=== PATIENT | male | born 1990 | race Caucasian/White ===

== ENCOUNTER 2019-03-06 04:19 | Emergency (ER) | payer MEDICAID ==
[~2019-03-06] VITALS: Ht 165.1 cm; Wt 68.0 kg
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
[2019-03-06] MEDS ORDERED: LIDOCAINE 1%-EPI 1:100,000 20 ML VIAL ONE (04:59)
[2019-03-06] MEDS ORDERED: LIDOCAINE 1%-EPI 1:100,000 50 ML VIAL IJ ONE (05:00)
[2019-03-06] MEDS ORDERED: TDAP [DIPH/PERTUSSIS/TET] 0.5 ML VIAL IM ONE ×2 (05:00→06:17)
--- NOTE | 2019-03-06 05:50 | NUR ---
AT BEDSIDE FOR SUTURE.
[2019-03-06] MEDS ORDERED: CEPHALEXIN MONOHYDRATE 500 MG CAPSULE PO ONE ×2 (05:57→06:00)
--- NOTE | 2019-03-06 06:10 | NUR ---
EMT AT BEDSIDE FOR WOUND DRESSING.
--- NOTE | 2019-03-06 06:51 | NUR ---
Patient discharged to home in stable condition. Written and verbal after care instructions given. Patient verbalizes understanding of instruction. Pt ambulatory with a steady gait
[2019-03-06 06:52] VITALS: BP 130/83
== END 2019-03-06 06:52 | disposition home or self-care (01) ==
LOC: ER 04:23
DX: S61.422A Laceration with foreign body of left hand, initial encounter (principal); S64.492A Injury of digital nerve of right middle finger, initial encounter; S64.490A Injury of digital nerve of right index finger, initial encounter; W25.XXXA Contact with sharp glass, initial encounter; Y93.89 Activity, other specified; Y92.89 Other specified places as the place of occurrence of the external cause; Y99.8 Other external cause status
CPT/HCPCS: 12042; 73130; 90471; 90715; 99284; A6403; J3490 ×2

== ENCOUNTER 2019-03-17 10:19 | Emergency (ER) | payer MEDICAID ==
[~2019-03-17] VITALS: Ht 167.6 cm; Wt 68.0 kg
[2019-03-17 10:25] VITALS: BP 134/76
--- NOTE | 2019-03-17 11:16 | NUR ---
Patient discharged to home in stable condition. Written and verbal after care instructions given. Patient verbalizes understanding of instruction.
== END 2019-03-17 11:16 | disposition home or self-care (01) ==
LOC: ER 10:20
DX: S61.412D Laceration without foreign body of left hand, subsequent encounter (principal); X58.XXXD Exposure to other specified factors, subsequent encounter

== ENCOUNTER 2020-07-24 18:23 | Emergency (ER) | payer MEDICAID ==
--- NOTE | 2020-07-24 19:10 | NUR ---
CALLED FOR TRIAGE, NO ANSWER.
--- NOTE | 2020-07-24 19:19 | NUR ---
CALLED FOR TRIAGE, NO ANSWER.
--- NOTE | 2020-07-24 19:37 | NUR ---
CALLED FOR TRIAGE, NOT IN WAITING ROOM
--- NOTE | 2020-07-24 20:02 | NUR ---
LAST CALL TO TRIAGE. NO ANSWER
== END 2020-07-24 21:02 | disposition left against medical advice (07) ==
LOC: ER 18:24
DX: Z02.89 Encounter for other administrative examinations (principal); Z53.21 Procedure and treatment not carried out due to patient leaving prior to being seen by health care provider

== ENCOUNTER 2020-07-27 10:22 | Emergency (ER) | payer MEDICAID ==
[~2020-07-27] VITALS: Ht 165.1 cm; Wt 61.7 kg
[2020-07-27] MEDS ORDERED: LORAZEPAM 1 MG TABLET PO ONE (13:00)
[2020-07-27] MEDS ORDERED: LORA-259 PO (13:43)
--- NOTE | 2020-07-27 14:12 | NUR ---
PATIENT A/OX4, BREATHING EVEN AND UNLABORED, NO SOB NOTED, NEEDS ATTENDED. DENIES FEELING ANXIOUS. PATIENT SEEN AND EVALUATED BY BUY BOAT OPERATOR. RESOURCES PROVIDED. Patient given written and verbal discharge instructions. Patient verbalizes understanding of instructions. Patient is ambulatory with steady gait. Refuses offer of alf placement. Patient given list of available shelters in surrounding area.
[2020-07-27 14:13] VITALS: BP 122/81
--- NOTE | 2020-07-27 14:50 | NUR ---
"Bottom Steep Tender consult: medical staff services coordinator consult requested for homelessness. Patient is a 30-year-old, male. SW met with patient in the emergency department. Patient was alert and oriented x4. Patient presented calm and appears well-groomed. Per chart, patient presented with complaints of anxiety on 07/27/20. Patient stated that he is currently homeless. Patient stated that he is currently receiving food stamps and General Relief. Patient stated that he receives some support from his mother and aunt such as providing some food, money or shower. SW asked patient if he has a history of substance use and patient reported occasional alcohol use. Patient stated his last use was four days ago. Patient denied drug use. Patient denied history of mental illness. Patient denied suicidal and homicidal ideation. SW offered patient homeless resources. Patient accepted the resources and thanked SW. Patient signed homeless waiver and SW filed waiver in the patient's chart. Patient stated that he will return to his prior living arrangement on the street and will take public transportation. PLAN: Patient will return to his prior living arrangement. No further SS intervention, however, SW will remain available as needed. RESOURCES: Year-round shelters: [facility] [address] [place] [address] ; [facility] [address] [place] [address]; [facility] [id number] [facility] [address] SPA 4 | [facility] Provider: [facility] Address: [address], [address] # of Beds: 48 Population Served: [facility] Provider: First [facility] Serve Address: [address] [facility], [address] # of Beds: 73 Population Served: [facility] 6 | [facility] Provider: [facility] Last Address: [address] [facility], [address] # of Beds: 63 Population Served: [facility] 3 | [facility] Provider: Rohit of [place] Address: [address] [place] [address] # of Beds: 75 Population Served: [facility] SPA 8 | [facility] Provider: Christian YI Address: [address] [facility], [address] # of Beds: 80 Population Served: [facility] SPA 1 | [facility] Provider: Christian YI Address: [address] [place] [address], [address] # of Beds: 85 Population Served: [facility] SPA 2 | [facility] Provider: Mari saavedra [facility] Address: Confidential (please call for location) # of Beds: 52 Population Served: [facility] SPA 4 | [facility] Provider: [facility] Address: [address] [facility], [address] # of Beds: 49 Population Served: [facility] Provider: [facility] Address: [address] [place] [address] # of Beds: 27 Population Served: [facility] Hygiene: [facility]: [address] [facility] ; [facility] [address] [facility] ; [facility] [address] [facility] . Food Resources: [place] [facility] at [facility]- [address] [facility]; Meet Each Need with [facility] ([facility]) [address] [facility]; [facility] [address] [facility]; [facility] [address] [facility]. Mental Health resources provided: [facility] [address] [place] [address] ; [facility] [address] [facility] [address], [place] [address] ; [facility] [address] [place] [address] ; [facility] [address] [place], [place] [id number] Healthcare Clinics: [facility] [address] [facility], [address] [place] ; [facility] [address] [facility] [address] [place] [address]; [facility] [address] [facility] [place] [phone] Counseling--Outpatient [facility] [address] [facility], [address] [place], [place] [address] (Specializes in in-depth psychotherapy for emotional distress: anxiety, depression, interpersonal conflicts, life transitions, childhood abuse) PSYCHIATRIC OUTPATIENT SERVICES [facility] Partial Hospitalization and Intensive Outpatient Program (Managed Care and [place] Only) [address] [facility] [address] [facility] Partial Hospitalization and Outpatient Program [address] [place], [place] [id number] [facility] Partial Hospitalization and Outpatient Program [address] [facility]. [place], [place] [phone] JAMAL PACHECO [facility] [address] [facility] [place], [place] [address] [facility] Partial Hospitalization and Outpatient Program [address] [place], [place] [phone] "
== END 2020-07-27 14:14 | disposition home or self-care (01) ==
LOC: ER 11:05
DX: F41.9 Anxiety disorder, unspecified (principal); Z59.0 Homelessness

== ENCOUNTER 2020-08-30 20:13 | Emergency (ER) | payer MEDICAID ==
[~2020-08-30] VITALS: Ht 167.6 cm; Wt 65.8 kg
[~2020-08-30 20:13] MED LIST: LORA-259 PO
[2020-08-30 20:30] VITALS: BP 134/81
[2020-08-30] MEDS ORDERED: ACET-2605 PO (21:05)
[2020-08-30] MEDS ORDERED: ACETAMINOPHEN ES 500 MG TABLET ONE (21:47)
[2020-08-30] MEDS: ACETAMINOPHEN ES 500 MG TABLET PO ONE (22:01)
--- NOTE | 2020-08-30 22:01 | NUR ---
PT LEFT BEFORE DISCHARGE.
== END 2020-08-30 22:02 | disposition home or self-care (01) ==
LOC: ER 20:15
DX: Z20.828 Contact with and (suspected) exposure to other viral communicable diseases (principal); R05 Cough; R09.81 Nasal congestion; F41.9 Anxiety disorder, unspecified; Z59.0 Homelessness; Z79.899 Other long term (current) drug therapy

== ENCOUNTER 2020-10-18 19:02 | Emergency (ER) | payer MEDICAID ==
[~2020-10-18] VITALS: Ht 167.6 cm; Wt 72.6 kg
[~2020-10-18 19:02] MED LIST changes: +ACET-2605 PO
--- NOTE | 2020-10-18 19:45 | NUR ---
CALLED FOR TRIAGE NOT IN WAITING ROOM.
--- NOTE | 2020-10-18 20:04 | NUR ---
CALLED FOR TRIAGE NOT IN WAITING ROOM
[2020-10-18] MEDS ORDERED: IV NS 0.9% 1,000 ML BAG IV ONE (20:30)
[2020-10-18] MEDS ORDERED: ONDANSETRON HCL/PF 4 MG/2 ML VIAL IVP ONE (20:30)
[2020-10-18] MEDS ORDERED: ONDANSETRON HCL/PF 4 MG/2 ML VIAL ONE (20:44)
[2020-10-18 20:45] LABS: BASOPHILS % (AUTO) 0.3 % (0.0-2.0); EOSINOPHILS % (AUTO) 0.1 % (0.0-6.0); HEMATOCRIT 48 % (39-51); HEMOGLOBIN 16.2 g/dL (13.5-17.5); LYMPHOCYTES # (AUTO) 1.2 K/uL (0.8-4.8); LYMPHOCYTES % (AUTO) 9.1 % (20.0-44.0); MEAN CORPUSCULAR HGB CONC 34 g/dl (31.0-36.0); MEAN CORPUSCULAR VOLUME 92 fL (80-96); MONOCYTES # (AUTO) 0.5 K/uL (0.1-1.30); MONOCYTES % (AUTO) 3.9 % (2.0-12.0); NEUTROPHILS # (AUTO) 11.7 K/uL (1.8-8.9); NEUTROPHILS % (AUTO) 86.6 % (43.0-81.0); PLATELET COUNT (AUTO) 280 K/uL (150-450); WHITE BLOOD COUNT (AUTO) 13.5 K/uL (4.3-11.0)
[2020-10-18 20:56] LABS: CALCIUM, SERUM 9.1 mg/dL (8.5-10.1); CREATININE 1.1 mg/dL (0.6-1.3); POTASSIUM 4.1 mmol/L (3.5-5.1)
[2020-10-18 21:02] LABS: ALBUMIN 4.7 g/dL (3.4-5.0); BILIRUBIN,DIRECT 0.2 mg/dL (0.0-0.2); BILIRUBIN,TOTAL 0.6 mg/dL (0.2-1.0); TOTAL PROTEIN, SERUM 8.5 g/dL (6.4-8.2)
[2020-10-18] MEDS ORDERED: ONDA4TAB5 PO (21:31)
--- NOTE | 2020-10-18 21:38 | NUR ---
Patient discharged to home in stable condition. Written and verbal after care instructions given. Patient verbalizes understanding of instruction. Pt ambulatory with a steady gait IV removed. Catheter intact and site benign. Pressure and 4x4 applied to site. No bleeding noted.
[2020-10-18 22:22] VITALS: BP 131/82
== END 2020-10-18 22:23 | disposition home or self-care (01) ==
LOC: ER 19:06
DX: R11.2 Nausea with vomiting, unspecified (principal); F41.9 Anxiety disorder, unspecified; Z59.0 Homelessness; Z79.899 Other long term (current) drug therapy
CPT/HCPCS: 36415; 80048; 80076; 83690; 85025; 96361; 96374; 99283; J2405; J7030

== ENCOUNTER 2020-11-26 13:27 | Emergency (ER) | payer MEDICAID ==
[~2020-11-26] VITALS: Ht 167.6 cm; Wt 72.6 kg
[~2020-11-26 13:27] MED LIST changes: +ONDA4TAB5 PO
--- NOTE | 2020-11-26 13:40 | NUR ---
Patient came in to the er c/o Chest pain; pressure like 5/10; x 4 days; intermittent. on room air, unlabored. Connected to the monitor and pulse ox. kept comfortable, will continue to monitor accordingly.
[2020-11-26 14:39] LABS: BASOPHILS % (AUTO) 0.5 % (0.0-2.0); EOSINOPHILS % (AUTO) 1.4 % (0.0-6.0); HEMATOCRIT 44 % (39-51); HEMOGLOBIN 14.9 g/dL (13.5-17.5); LYMPHOCYTES # (AUTO) 1.3 K/uL (0.8-4.8); LYMPHOCYTES % (AUTO) 18.8 % (20.0-44.0); MEAN CORPUSCULAR HGB CONC 34 g/dl (31.0-36.0); MEAN CORPUSCULAR VOLUME 93 fL (80-96); MONOCYTES # (AUTO) 0.5 K/uL (0.1-1.30); MONOCYTES % (AUTO) 6.9 % (2.0-12.0); NEUTROPHILS % (AUTO) 72.4 % (43.0-81.0); PLATELET COUNT (AUTO) 252 K/uL (150-450); RED BLOOD CELL COUNT(AUTO) 4.78 MIL/uL (4.5-6.0); WHITE BLOOD COUNT (AUTO) 6.9 K/uL (4.3-11.0)
[2020-11-26 14:53] LABS: CARBON DIOXIDE 29 mmol/L (21-32); CHLORIDE 103 mmol/L (98-107); GLUCOSE 93 mg/dL (74-106); POTASSIUM 3.9 mmol/L (3.5-5.1); SODIUM SERUM 141 mmol/L (136-145); UREA NITROGEN, BLOOD 13 mg/dL (7-18)
[2020-11-26] MEDS ORDERED: LORA-259 PO (16:01)
[2020-11-26 16:11] VITALS: BP 118/71
--- NOTE | 2020-11-26 16:12 | NUR ---
Patient discharged to home in stable condition. Written and verbal after care instructions given. Patient verbalizes understanding of instruction.
== END 2020-11-26 16:12 | disposition home or self-care (01) ==
LOC: ER 13:29
DX: R07.89 Other chest pain (principal); F41.9 Anxiety disorder, unspecified; Z79.899 Other long term (current) drug therapy
CPT/HCPCS: 36415; 71045-TC; 80048-TC; 84484-TC; 85025-TC

== ENCOUNTER 2021-03-12 02:36 | Emergency (ER) | payer MEDICAID ==
[~2021-03-12] VITALS: Ht 165.1 cm; Wt 63.5 kg
[2021-03-12] MEDS ORDERED: MORPHINE SULFATE INJ 2 MG/ML DISP.SYRIN IV ONE (03:00)
[2021-03-12] MEDS ORDERED: IV NS 0.9% 1,000 ML BAG IV ONE (03:00)
[2021-03-12] MEDS ORDERED: ONDANSETRON HCL/PF 4 MG/2 ML VIAL IVP ONE (03:00)
[2021-03-12] MEDS ORDERED: MORPHINE SULFATE INJ 4 MG/ML DISP.SYRIN ONE (03:10)
[2021-03-12] MEDS ORDERED: ONDANSETRON HCL/PF 4 MG/2 ML VIAL ONE (03:10)
[2021-03-12 03:29] LABS: BASOPHILS # (AUTO) 0.1 K/uL (0.0-0.2); BASOPHILS % (AUTO) 0.4 % (0.0-2.0); EOSINOPHILS % (AUTO) 1.9 % (0.0-6.0); HEMATOCRIT 45 % (39-51); HEMOGLOBIN 15.4 g/dL (13.5-17.5); LYMPHOCYTES # (AUTO) 2.2 K/uL (0.8-4.8); LYMPHOCYTES % (AUTO) 17.3 % (20.0-44.0); MEAN CORPUSCULAR HGB CONC 34 g/dl (31.0-36.0); MEAN CORPUSCULAR VOLUME 90 fL (80-96); MONOCYTES # (AUTO) 0.6 K/uL (0.1-1.30); MONOCYTES % (AUTO) 4.9 % (2.0-12.0); NEUTROPHILS # (AUTO) 9.7 K/uL (1.8-8.9); NEUTROPHILS % (AUTO) 75.5 % (43.0-81.0); PLATELET COUNT (AUTO) 230 K/uL (150-450); RED BLOOD CELL COUNT(AUTO) 4.99 MIL/uL (4.5-6.0); WHITE BLOOD COUNT (AUTO) 12.9 K/uL (4.3-11.0)
[2021-03-12 03:41] LABS: CALCIUM, SERUM 9.4 mg/dL (8.5-10.1); CREATININE 1.2 mg/dL (0.6-1.3); POTASSIUM 3.4 mmol/L (3.5-5.1)
[2021-03-12 03:49] LABS: ALBUMIN 4.5 g/dL (3.4-5.0); BILIRUBIN,DIRECT 0.2 mg/dL (0.0-0.2); BILIRUBIN,TOTAL 0.6 mg/dL (0.2-1.0); TOTAL PROTEIN, SERUM 8.1 g/dL (6.4-8.2)
[2021-03-12] MEDS ORDERED: ONDA4TAB5 PO (05:00)
[2021-03-12 06:11] VITALS: BP 119/81
== END 2021-03-12 06:12 | disposition home or self-care (01) ==
LOC: ER 02:37
DX: R11.2 Nausea with vomiting, unspecified (principal); Z20.822 Contact with and (suspected) exposure to COVID-19; Z90.49 Acquired absence of other specified parts of digestive tract; K57.90 Diverticulosis of intestine, part unspecified, without perforation or abscess without bleeding; D72.829 Elevated white blood cell count, unspecified; F41.9 Anxiety disorder, unspecified; Z79.899 Other long term (current) drug therapy
CPT/HCPCS: 36415; 74176; 80048; 80076; 80307; 85025; 87426; 96361; 96374; 99284; C9803; J2405; J7030; J2270

== ENCOUNTER 2021-09-14 14:11 | Emergency (ER) | payer MEDICAID ==
[~2021-09-14] VITALS: Ht 167.6 cm; Wt 68.0 kg
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
[2021-09-14] MEDS ORDERED: LIDOCAINE 1%-EPI 1:100,000 20 ML VIAL TP ONE (16:00)
[2021-09-14] MEDS ORDERED: CEPH500C2 PO (16:41)
[2021-09-14 16:54] VITALS: BP 124/81
== END 2021-09-14 16:55 | disposition home or self-care (01) ==
LOC: ER 14:13
DX: S31.119A Laceration without foreign body of abdominal wall, unspecified quadrant without penetration into peritoneal cavity, initial encounter (principal); S60.031A Contusion of right middle finger without damage to nail, initial encounter; S60.041A Contusion of right ring finger without damage to nail, initial encounter; F41.9 Anxiety disorder, unspecified; Z79.899 Other long term (current) drug therapy; X99.1XXA Assault by knife, initial encounter; Y93.01 Activity, walking, marching and hiking; Y92.89 Other specified places as the place of occurrence of the external cause; Y99.8 Other external cause status
CPT/HCPCS: 73130-TC

== ENCOUNTER 2021-09-19 16:05 | Emergency (ER) | payer MEDICAID ==
[~2021-09-19] VITALS: Ht 167.6 cm; Wt 68.0 kg
[~2021-09-19 16:05] MED LIST changes: +CEPH500C2 PO
[2021-09-19 16:33] VITALS: BP 130/61
--- NOTE | 2021-09-19 17:10 | NUR ---
Patient discharged to home in stable condition. Written and verbal after care instructions given. Patient verbalizes understanding of instruction.
== END 2021-09-19 17:10 | disposition home or self-care (01) ==
LOC: ER 16:07
DX: S31.119D Laceration without foreign body of abdominal wall, unspecified quadrant without penetration into peritoneal cavity, subsequent encounter (principal); Z59.00 Homelessness unspecified; F41.9 Anxiety disorder, unspecified; Z79.899 Other long term (current) drug therapy; X58.XXXD Exposure to other specified factors, subsequent encounter

== ENCOUNTER 2021-09-28 17:10 | Emergency (ER) | payer MEDICAID ==
[~2021-09-28] VITALS: Ht 167.6 cm; Wt 65.8 kg
[2021-09-28 17:18] VITALS: BP 115/72
== END 2021-09-28 17:34 | disposition home or self-care (01) ==
LOC: ER 17:12
DX: S31.119D Laceration without foreign body of abdominal wall, unspecified quadrant without penetration into peritoneal cavity, subsequent encounter (principal); F41.9 Anxiety disorder, unspecified; Z79.899 Other long term (current) drug therapy; X58.XXXD Exposure to other specified factors, subsequent encounter

== ENCOUNTER 2021-10-16 03:06 | Emergency (ER) | payer MEDICAID ==
[~2021-10-16] VITALS: Ht 167.6 cm; Wt 88.5 kg
[2021-10-16 03:22] VITALS: BP 102/75
--- NOTE | 2021-10-16 03:22 | NUR ---
BIBS FROM HOME ANXIOUS, L CHEST PAIN NON RADIATING CONSTANT SHARP 6/10 SHARP. PT AOX3. TOLERATING R/A WELL WITH NO RESP DISTRESS. SAFETY MEASURES IN PLACE. 1:1 SITTER AT PT'S BEDSIDE.
--- NOTE | 2021-10-16 03:36 | NUR ---
RT AT PT'S BEDSIDE FOR EKG
[2021-10-16] MEDS ORDERED: ESCI5TAB PO (04:22)
--- NOTE | 2021-10-16 04:32 | NUR ---
Patient discharged to home in stable condition. Written and verbal after care instructions given. Patient verbalizes understanding of instruction. pt ambulatory with a steady gait
== END 2021-10-16 04:33 | disposition home or self-care (01) ==
LOC: ER 03:11
DX: F41.9 Anxiety disorder, unspecified (principal); Z60.2 Problems related to living alone; Z79.899 Other long term (current) drug therapy

== ENCOUNTER 2022-10-18 04:43 | Emergency (ER) | payer MEDICAID, OTHER ==
[~2022-10-18] VITALS: Ht 167.6 cm; Wt 59.0 kg
[~2022-10-18 04:43] MED LIST changes: +ESCI5TAB PO
[2022-10-18 04:46] VITALS: BP 134/88; TEMP 98.1; O2SAT 98
[2022-10-18] MEDS ORDERED: LORAZEPAM 1 MG TABLET ONE (04:53)
[2022-10-18] MEDS ORDERED: LORAZEPAM 1 MG TABLET PO ONE (05:00)
== END 2022-10-18 05:08 ==
LOC: ER 04:50
DX: F41.9 Anxiety disorder, unspecified (principal); Z79.899 Other long term (current) drug therapy; Z90.49 Acquired absence of other specified parts of digestive tract; Z60.2 Problems related to living alone